=== PATIENT | male | born 1950 | race Caucasian/White ===

== ENCOUNTER 2024-06-26 15:35 | Observation (INO) ==
[2024-06-26] MEDS ORDERED: IOPAMIDOL 100 ML BOTTLE IV ONE (15:36)
[2024-06-26 16:04] LABS: Basophils # (Auto) 0.05 K/mcL (0.00-0.30); Basophils % (Auto) 0.5 % (0.0-2.0); Eosinophils # (Auto) 0.09 K/mcL (0.00-0.70); Eosinophils % (Auto) 0.9 % (0.0-7.0); Hematocrit 39.9 % (40.1-51.0); Hemoglobin 13.4 g/dL (13.7-17.5); Lymphocytes # (Auto) 1.29 K/mcL (1.50-4.80); Mean Cell Volume 92.8 fL (80.0-100.0); Mean Corpuscular HGB Conc 33.6 g/dL (31.0-36.0); Mean Platelet Volume 9.3 fL (8.8-12.5); Monocytes # (Auto) 0.84 K/mcL (0.10-0.90); Monocytes % (Auto) 8.5 % (1.0-12.0); Neutrophils % (Auto) 76.7 % (38.0-78.0); Platelet Count 329 K/mcL (140-440); Red Cell Distribution Width 14.3 % (11.5-14.5); WBC 9.9 K/mcL (4.5-11.0)
[2024-06-26 16:23] LABS: ALT/SGPT 18 U/L (<40); AST/SGOT 19 U/L (<40); Albumin 4.2 gm/dL (3.2-5.2); Albumin/Globulin Ratio 1.2 (1.0-2.3); Alkaline Phosphatase 123 U/L (39-117); Blood Urea Nitrogen 11 mg/dL (8-23); Calcium 10.3 mg/dL (8.6-10.4); Carbon Dioxide 24 mmol/L (22-30); Chloride 94 mmol/L (96-108); Globulin 3.4 gm/dL (2.2-3.7); Glomerular Filtration Rate 74; Glucose 124 mg/dL (70-105); Potassium 3.9 mmol/L (3.3-5.1); Sodium 133 mmol/L (133-145)
[2024-06-26] MEDS: fentaNYL 100 MCG/2 ML VIAL IV ONE (16:48)
[2024-06-26 18:48] LABS: Appearance,Urine Clear (Clear); Bilirubin,Urine Negative (Negative); Color,Urine Yellow; Glucose,Urine (UA) Negative (Negative); Ketones,Urine Negative (Negative); Leukocyte Esterase,Urine Negative /uL (Negative); Nitrate,Urine Negative (Negative); PH,Urine 8.5 (5.0-9.0); Protein,Urine Negative (Negative); Specific Gravity,Urine 1.015 (1.000-1.035); Urine Blood Negative ery/mcL (Negative); Urobilinogen,Urine Normal
[2024-06-26] MEDS ORDERED: ONDANSETRON 4 MG/2 ML VIAL IV PRN (19:23)
[2024-06-26] MEDS: morphine 2 MG/ML VIAL IV PRN (20:00)
[2024-06-26] MEDS: PIPERACILLIN SODIUM/TAZOBACTAM 3.375 GM in DEXTROSE 5% IN WATER 50 ML IV ONE (20:01)
[2024-06-26] MEDS: 0.9 % SODIUM CHLORIDE 1,000 ML IV SCH (20:01)
[2024-06-26] MEDS ORDERED: PIPERACILLIN SODIUM/TAZOBACTAM 3.375 GM in DEXTROSE 5% IN WATER 100 ML IV SCH (23:30)
[2024-06-27] MEDS: PIPERACILLIN SODIUM/TAZOBACTAM 3.375 GM in DEXTROSE 5% IN WATER 100 ML IV SCH (00:07)
[2024-06-27 06:14] LABS: Basophils # (Auto) 0.07 K/mcL (0.00-0.30); Eosinophils # (Auto) 0.15 K/mcL (0.00-0.70); Eosinophils % (Auto) 2.1 % (0.0-7.0); Hematocrit 37.7 % (40.1-51.0); Hemoglobin 12.7 g/dL (13.7-17.5); Lymphocytes # (Auto) 1.22 K/mcL (1.50-4.80); Lymphocytes % (Auto) 16.8 % (15.5-49.0); Mean Cell Volume 94.5 fL (80.0-100.0); Mean Corpuscular HGB Conc 33.7 g/dL (31.0-36.0); Mean Platelet Volume 9.7 fL (8.8-12.5); Monocytes # (Auto) 0.78 K/mcL (0.10-0.90); Monocytes % (Auto) 10.7 % (1.0-12.0); Platelet Count 269 K/mcL (140-440); RBC 3.99 M/mcL (4.63-6.08); Red Cell Distribution Width 14.2 % (11.5-14.5); WBC 7.3 K/mcL (4.5-11.0)
[2024-06-27 08:54] LABS: INR 0.9 (0.9-1.1)
[2024-06-27] MEDS ORDERED: KETAMINE 50 MG/ML Syringe IV ONE (10:28)
[2024-06-27] MEDS ORDERED: fentaNYL 100 MCG/2 ML VIAL ONE (10:28)
[2024-06-27] MEDS ORDERED: PROPOFOL 200 MG/20 ML VIAL IV ONE (10:29)
[2024-06-27] MEDS ORDERED: SUGAMMADEX SODIUM 200 MG/2 ML VIAL IV ONE (10:29)
[2024-06-27] MEDS ORDERED: GLYCOPYRROLATE 0.2 MG/ML VIAL IV ONE (10:30)
[2024-06-27] MEDS ORDERED: ONDANSETRON 4 MG/2 ML VIAL ONE (10:30)
[2024-06-27] MEDS ORDERED: DEXAMETHASONE 10 MG/ML VIAL ONE (10:30)
[2024-06-27] MEDS ORDERED: ROCURONIUM 10 MG/ML ML IV ONE (10:30)
[2024-06-27] MEDS ORDERED: LIDOCAINE 2% PF 5 ML VIAL ONE (10:30)
[2024-06-27] MEDS ORDERED: MAGNESIUM SULFATE 2 GM/50 ML BAG IV ONE (10:35)
[2024-06-27] MEDS ORDERED: PHENYLephrine 1 MG/10 ML SYRINGE (ANEST) ONE (11:22)
[2024-06-27] MEDS ORDERED: ePHEDrine 50 MG/5 ML SYRINGE (ANEST) IV ONE (11:24)
[2024-06-27] MEDS ORDERED: fentaNYL 100 MCG/2 ML VIAL IV PRN (11:53)
[2024-06-27] MEDS ORDERED: ONDANSETRON 4 MG/2 ML VIAL IV PRN (11:53)
[2024-06-27] MEDS ORDERED: IPRATROPIUM/ALBUTEROL 3 ML AMPUL.NEB NEB PRN (11:53)
[2024-06-27] MEDS ORDERED: HYDROmorphone 0.5 MG/0.5 ML SYRINGE ONE (12:00)
[2024-06-27] MEDS: ACETAMINOPHEN 1,000 MG/100 ML BAG IV ONE (12:27)
[2024-06-27] MEDS: LACTATED RINGERS 1,000 ML IV SCH (15:13)
[2024-06-27] MEDS: oxyCODONE IR 5 MG TABLET PO PRN (15:43)
[2024-06-28 06:49] LABS: Basophils # (Auto) 0.04 K/mcL (0.00-0.30); Basophils % (Auto) 0.5 % (0.0-2.0); Eosinophils # (Auto) 0 K/mcL (0.00-0.70); Eosinophils % (Auto) 0 % (0.0-7.0); Hematocrit 35.1 % (40.1-51.0); Hemoglobin 11.7 g/dL (13.7-17.5); Lymphocytes # (Auto) 0.68 K/mcL (1.50-4.80); Lymphocytes % (Auto) 8.3 % (15.5-49.0); Mean Cell Volume 95.4 fL (80.0-100.0); Mean Corpuscular HGB Conc 33.3 g/dL (31.0-36.0); Mean Platelet Volume 9.9 fL (8.8-12.5); Monocytes # (Auto) 0.55 K/mcL (0.10-0.90); Monocytes % (Auto) 6.7 % (1.0-12.0); Neutrophils % (Auto) 83.8 % (38.0-78.0); Platelet Count 270 K/mcL (140-440); RBC 3.68 M/mcL (4.63-6.08); Red Cell Distribution Width 14.2 % (11.5-14.5); WBC 8.2 K/mcL (4.5-11.0)
[2024-06-28 07:04] LABS: ALT/SGPT 92 U/L (<40); AST/SGOT 75 U/L (<40); Albumin 3.5 gm/dL (3.2-5.2); Albumin/Globulin Ratio 1.3 (1.0-2.3); Alkaline Phosphatase 110 U/L (39-117); Bilirubin,Direct 0.3 mg/dL (<0.3); Bilirubin,Total 0.5 mg/dL (0.1-1.0); Blood Urea Nitrogen 11 mg/dL (8-23); Calcium 9.2 mg/dL (8.6-10.4); Carbon Dioxide 23 mmol/L (22-30); Chloride 97 mmol/L (96-108); Globulin 2.8 gm/dL (2.2-3.7); Glomerular Filtration Rate 89; Glucose 116 mg/dL (70-105); Lactate Dehydrogenase 128 U/L (135-225); Phosphorous 3.3 mg/dL (2.5-4.5); Potassium 4.5 mmol/L (3.3-5.1); Sodium 131 mmol/L (133-145); Triglycerides 64 mg/dL (<150); Uric Acid 3.5 mg/dL (2.5-8.0)
[2024-06-28] MEDS: LEVOTHYROXINE 25 MCG TABLET PO SCH (07:22)
[2024-06-28 07:55] VITALS: TEMP 97.9; O2SAT 98
[2024-06-28] MEDS: LISINOPRIL 20 MG TABLET PO SCH (09:20)
[2024-06-28] MEDS: amLODIPine 10 MG TABLET PO SCH (09:24)
[2024-06-28] MEDS: HYDROCHLOROTHIAZIDE 12.5 MG CAPSULE PO SCH (09:24)
== END 2024-06-28 13:19 | disposition home or self-care (01) ==
LOC: ED 15:35 → INTOOBSV 19:45 → MEDSUR 19:45
PROVIDERS: ADMIT Family Medicine Adult Medicine; ATTEND Family Medicine Adult Medicine